=== PATIENT | female | born 1960 | race Caucasian/White ===

== ENCOUNTER 2017-03-30 08:00 | Outpatient (CLI) | payer OTHER ==
[2017-03-30 13:27] LABS: BASOPHILS % (AUTO) 0.5 %; EOSINOPHILS # (AUTO) 0.2 10^3/uL (0.0-0.7); EOSINOPHILS % (AUTO) 2.5 %; HCT - HEMATOCRIT 40.2 % (37.0-47.0); HGB - HEMOGLOBIN 13.2 g/dL (12.0-16.0); LYMPHOCYTES # (AUTO) 1.9 10^3/uL (1.5-3.5); MEAN CORPUSCULAR HEMOGLOBIN 28.5 pg (27.0-31.0); MEAN CORPUSCULAR HGB CONC 32.7 g/dL (32.0-36.0); MEAN CORPUSCULAR VOLUME 87.1 fL (81.0-99.0); MEAN PLATELET VOLUME 8.1 fL (7.9-10.8); MONOCYTES # (AUTO) 0.6 10^3/uL (0.0-1.0); MONOCYTES % (AUTO) 7.2 %; NEUTROPHILS # (AUTO) 5.3 10^3/uL (1.5-6.6); NEUTROPHILS % (AUTO) 65.8 %; NUCLEATED RED BLOOD CELLS AUTO 0.1 /100WBC; RED BLOOD COUNT 4.61 10^6/uL (4.20-5.40); RED CELL DISTRIBUTION WIDTH 13.6 % (12.0-15.0)
[2017-03-30 13:52] LABS: ALBUMIN/GLOBULIN RATIO 1.3 (1.0-2.2); BILIRUBIN,TOTAL 0.5 mg/dL (0.2-1.0); BUN - BLOOD UREA NITROGEN 37 mg/dL (6-20); CALCIUM 9.7 mg/dL (8.5-10.3); CARBON DIOXIDE - CO2 28 mmol/L (21-32); CHLORIDE 103 mmol/L (101-111); CHOL/HDL RATIO 3.2 (<4.4); CHOLESTEROL 165 mg/dL; CREATININE 1.3 mg/dL (0.4-1.0); GFR - MDRD 43 (>89); GLUCOSE 118 mg/dL (70-100); HDL CHOLESTEROL 52 mg/dL; LDL/HDL RATIO 1.8 (<4.4); POTASSIUM 4.4 mmol/L (3.5-5.0); SODIUM 139 mmol/L (135-145); TOTAL PROTEIN 7.6 g/dL (6.7-8.2); TRIGLYCERIDES 93 mg/dL; VLDL CHOLESTEROL 19 mg/dL
[2017-03-30 14:14] LABS: FOLATE 8.59 ng/mL (5.90 - >24.8)
[2017-03-30 14:21] LABS: THYROID STIMULATING HORMONE 2.15 uIU/mL (0.34-5.60)
== END 2017-03-30 08:01 | disposition home or self-care (01) ==
LOC: LAB.N 08:00
PROVIDERS: ATTEND Family Medicine
DX: I10 Essential (primary) hypertension (principal); E78.5 Hyperlipidemia, unspecified; R42 Dizziness and giddiness; N28.9 Disorder of kidney and ureter, unspecified; D52.9 Folate deficiency anemia, unspecified; Z79.899 Other long term (current) drug therapy
CPT/HCPCS: 36415; 80053; 80061; 82746; 84439; 84443; 85025

== ENCOUNTER 2017-07-08 14:57 | Outpatient (CLI) | payer OTHER ==
[2017-07-08 14:36] LABS: ALBUMIN/GLOBULIN RATIO 1.3 (1.0-2.2); BILIRUBIN,TOTAL 0.6 mg/dL (0.2-1.0); BUN - BLOOD UREA NITROGEN 29 mg/dL (6-20); CALCIUM 9.5 mg/dL (8.5-10.3); CARBON DIOXIDE - CO2 25 mmol/L (21-32); CHLORIDE 104 mmol/L (101-111); CHOL/HDL RATIO 4.7 (<4.4); CHOLESTEROL 248 mg/dL; CREATININE 1.1 mg/dL (0.4-1.0); GFR - MDRD 52 (>89); GLUCOSE 98 mg/dL (70-100); HDL CHOLESTEROL 53 mg/dL; LDL/HDL RATIO 3.3 (<4.4); POTASSIUM 4.1 mmol/L (3.5-5.0); SODIUM 139 mmol/L (135-145); TOTAL PROTEIN 7.8 g/dL (6.7-8.2); TRIGLYCERIDES 108 mg/dL; VLDL CHOLESTEROL 22 mg/dL
[2017-07-08 15:33] LABS: HEMOGLOBIN A1C 0.67 g/dL
== END 2017-07-08 14:58 | disposition home or self-care (01) ==
LOC: LAB.N 14:57
PROVIDERS: ATTEND Family Medicine
DX: R73.9 Hyperglycemia, unspecified (principal); N28.9 Disorder of kidney and ureter, unspecified; I10 Essential (primary) hypertension; E78.5 Hyperlipidemia, unspecified; Z79.899 Other long term (current) drug therapy
CPT/HCPCS: 36415; 80053; 80061; 83036

== ENCOUNTER 2017-08-16 15:39 | Emergency (ER) | payer OTHER ==
[2017-08-16 15:45] VITALS: BP 143/85
[2017-08-16] MEDS ORDERED: HYDROcod/ACETAM 5/325 MG TABLET PO STA (16:13)
--- NOTE | 2017-08-16 16:16 | ED Physician Documentation ---
PD HPI HEENT - Stated complaint Stated Complaint: SINUS PRESURE - Chief complaint Chief Complaint: Heent - History obtained from History obtained from: Patient - History of Present Illness Timing - onset: How many days ago (2) Timing - details: Still present Location: Sinuses Associated symptoms: No: Fever, Cough Similar symptoms before: Diagnosis (She reports history of similar symptoms about one year ago with sinus infection.) - Additional information Additional information: The patient is a 56-year-old female who presents with sinus pressure and right frontal headache that have been ongoing for the past 2 or 3 days. She denies fever, cough, nausea or vomiting. She reports history of similar symptoms with sinus infection about one year ago. Social history is significant for cigarette smoking. Review of Systems Constitutional: denies: Fever Eyes: denies: Discharge Ears: denies: Ear pain Nose: reports: Congestion, Sinus pressure / pain Throat: denies: Sore throat Cardiac: denies: Chest pain / pressure Respiratory: denies: Dyspnea, Cough GI: denies: Abdominal Pain, Nausea, Vomiting : denies: Dysuria Skin: denies: Rash Musculoskeletal: denies: Neck pain Neurologic: reports: Headache. denies: Focal weakness, Numbness PD PAST MEDICAL HISTORY - Past Medical History Past Medical History: Yes Cardiovascular: Hypertension Psych: Anxiety - Past Surgical History Past Surgical History: Yes Ortho: Other - Present Medications Home Medications: Ambulatory Orders Medication Instructions Recorded Confirmed Lisinopril 20 mg PO DAILY 06/10/15 08/16/17 Cyclobenzaprine [Flexeril] 10 mg PO TID PRN 08/14/15 08/16/17 Azithromycin [Zithromax] 250 mg PO DAILY #6 tablet 08/16/17 Oxymetazoline HCl [Afrin] 15 ml NS BID #1 mist 08/16/17 - Allergies Allergies/Adverse Reactions: Allergies Allergy/AdvReac Type Severity Reaction Status Date / Time No Known Drug Allergies Allergy Verified 06/10/15 12:27 - Social History Does the pt smoke?: Yes Smoking Status: Current every day smoker Does the pt drink ETOH?: No Does the pt have substance abuse?: No - Immunizations Immunizations are current?: Yes PD ED PE NORMAL - Vitals Vital signs reviewed: Yes (initially hypertensive.) - General General: Alert and oriented X 3, Well developed/nourished - HEENT HEENT: Atraumatic, PERRL, EOMI, Ears normal, Other (There is tenderness to percussion over the right maxillary and frontal sinuses.) - Neck Neck: Supple, no meningeal sign, No adenopathy, No JVD - Cardiac Cardiac: RRR, No murmur - Respiratory Respiratory: No respiratory distress, Clear bilaterally - Abdomen Abdomen: Soft, Non tender - Back Back: No CVA TTP - Derm Derm: No rash - Extremities Extremities: No edema, No calf tenderness / cord - Neuro Neuro: Alert and oriented X 3, No motor deficit, No sensory deficit Results - Vitals Vitals: Oxygen O2 Source Room air PD MEDICAL DECISION MAKING - ED course Complexity details: considered differential, d/w patient, d/w family ED course: The patient's presentation is consistent with sinusitis versus viral upper respiratory infection. Her presentation does not suggest meningitis, pharyngitis, or peritonsillar abscess. I discussed with her that antibiotics are not necessarily indicated for sinusitis, especially with symptoms of only 2 or 3 days duration. However she was quite insistent that the only way it has been improving the past as with antibiotic therapy. Subsequently I discharged her with prescription for Zithromax as well as Afrin nasal spray. I discussed with her the expected course of illness, outpatient follow-up, as well as potentially worrisome signs or symptoms that should prompt reevaluation in the emergency department. Departure - Departure Disposition: 01 Home, Self Care Clinical Impression: Sinusitis Qualifiers: Sinusitis location: maxillary Chronicity: acute Recurrence: recurrent Qualified Code(s): J01.01 - Acute recurrent maxillary sinusitis Condition: Stable Instructions: ED Sinusitis Abx Tx Follow-Up: Elizabet Toribio MD [Primary Care Provider] - Prescriptions: Azithromycin [Zithromax] 250 mg PO DAILY #6 tablet Oxymetazoline HCl [Afrin] 15 ml NS BID #1 mist Comments: Stop smoking cigarettes. Use Afrin nasal spray twice daily as prescribed. Take Zithromax once daily as prescribed. You can use ibuprofen, up to 800 mg 3 times daily for fever or discomfort. Follow up with your primary physician within 2 weeks. Call to schedule an appointment. Return to the emergency department if you develop increasing headache, increasing difficulty breathing, or otherwise worsening symptoms. Discharge Date/Time: 08/16/17 16:27
[2017-08-16] MEDS ORDERED: HYDROcod/ACETAM 5/325 MG TABLET ONE (16:27)
== END 2017-08-16 16:27 | disposition home or self-care (01) ==
LOC: ED 15:39
DX: J01.01 Acute recurrent maxillary sinusitis (principal); F17.210 Nicotine dependence, cigarettes, uncomplicated
CPT/HCPCS: 99283

== ENCOUNTER 2017-11-28 08:00 | Outpatient (CLI) | payer OTHER ==
[2017-11-28 19:30] LABS: HB2 TOTAL 14.8 g/dL; HEMOGLOBIN A1C 0.65 g/dL; HEMOGLOBIN A1C % 6.2 % (4.6-6.2)
[2017-11-28 19:48] LABS: ALBUMIN 4.4 g/dL (3.2-5.5); ALBUMIN/GLOBULIN RATIO 1.4 (1.0-2.2); ALKALINE PHOSPHATASE 77 IU/L (42-121); ALT ALANINE AMINOTRANSFERASE 29 IU/L (10-60); AST ASPARTATE AMINOTRANSFERASE 21 IU/L (10-42); BILIRUBIN,TOTAL 0.5 mg/dL (0.2-1.0); BUN - BLOOD UREA NITROGEN 23 mg/dL (6-20); CALCIUM 9.4 mg/dL (8.5-10.3); CARBON DIOXIDE - CO2 26 mmol/L (21-32); CHLORIDE 104 mmol/L (101-111); CHOL/HDL RATIO 3.3 (<4.4); CHOLESTEROL 159 mg/dL; CREATININE 1.1 mg/dL (0.4-1.0); GFR - MDRD 52 (>89); GLUCOSE 88 mg/dL (70-100); HDL CHOLESTEROL 48 mg/dL; LDL CHOLESTEROL,CALCULATED 91 mg/dL; LDL/HDL RATIO 1.9 (<4.4); SODIUM 137 mmol/L (135-145); TOTAL PROTEIN 7.5 g/dL (6.7-8.2); VLDL CHOLESTEROL 20 mg/dL
== END 2017-11-28 08:01 | disposition home or self-care (01) ==
LOC: LAB.N 08:00
PROVIDERS: ATTEND Family Medicine
DX: I10 Essential (primary) hypertension (principal); D52.9 Folate deficiency anemia, unspecified; R73.9 Hyperglycemia, unspecified
CPT/HCPCS: 36415; 80053; 80061; 82746; 83036; 83721

== ENCOUNTER 2019-04-16 09:27 | Emergency (ER) | payer OTHER ==
[2019-04-16] MEDS ORDERED: CHERRY SYRUP 10 ML UDC PO ONE (10:43)
[2019-04-16] MEDS ORDERED: DEXAMETHASONE 10 MG/ML VIAL PO STA (10:43)
[2019-04-16] MEDS ORDERED: KETOROLAC 60 MG/2 ML VIAL IM STA (10:43)
--- NOTE | 2019-04-16 10:46 | ED Physician Documentation ---
History of Present Illness - Stated complaint Stated Complaint: LT SHOULDER PX - Chief complaint Chief Complaint: Back Pain - History obtained from History obtained from: Patient, Family - History of Present Illness Timing: Yesterday - Additonal information Additional information: Previously well 58-year-old female with a prior history of calcific tendinitis has developed acute pain in her left shoulder and a reduced range of motion associated with it. She even has some numbness down to her fingertips. She has had this happen to her previously. She knows that she did clean her house this week this is likely the inciting event. Review of Systems Constitutional: denies: Fever Eyes: denies: Decreased vision Ears: denies: Ear pain Nose: denies: Congestion Throat: denies: Sore throat Cardiac: denies: Chest pain / pressure, Palpitations Respiratory: denies: Dyspnea, Cough : denies: Dysuria Skin: denies: Rash Musculoskeletal: reports: Neck pain, Extremity pain Neurologic: reports: Numbness. denies: Generalized weakness, Focal weakness PD PAST MEDICAL HISTORY - Past Medical History Cardiovascular: Hypertension Psych: Anxiety - Past Surgical History Past Surgical History: Yes Ortho: Other - Present Medications Home Medications: Ambulatory Orders Medication Instructions Recorded Confirmed RX: Lisinopril 20 mg PO DAILY 06/10/15 08/16/17 Cyclobenzaprine [Flexeril] 10 mg PO TID PRN 08/14/15 08/16/17 Clopidogrel [Plavix] 75 mg PO DAILY 04/16/19 04/16/19 Hydrocodone/Acetaminophen 1 - 2 each PO Q6H PRN #14 tablet 04/16/19 [Hydrocodon-Acetaminophen 5-325] - Allergies Allergies/Adverse Reactions: Allergies Allergy/AdvReac Type Severity Reaction Status Date / Time No Known Drug Allergies Allergy Verified 04/16/19 09:36 - Social History Does the pt smoke?: Yes Smoking Status: Current every day smoker Does the pt drink ETOH?: No Does the pt have substance abuse?: No - Immunizations Immunizations are current?: Yes PD ED PE NORMAL - Vitals Vital signs reviewed: Yes (hypertensive mild ) - General General: Alert and oriented X 3, No acute distress, Well developed/nourished - HEENT HEENT: Atraumatic, PERRL, EOMI - Neck Neck: Supple, no meningeal sign, No bony TTP - Respiratory Respiratory: No respiratory distress - Derm Derm: Normal color, Warm and dry, No rash - Extremities Extremities: No deformity, No edema, Other (There is pain to the left deltoid to palpation and there is restricted ROM secondary to pain. There is also pain in the left neck paraspinous muscles extending to the insertion of the spinal accessor. 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 Rotator cuff calcific tendinopathy. 2. No acute fracture or subluxation and no evidence for shoulder joint effusion.), EMP read indepedently, See rad report PD MEDICAL DECISION MAKING - ED course Complexity details: considered differential, d/w patient, d/w family ED course: 58-year-old female with acute left shoulder pain after cleaning her house has calcific tendinitis and she is administered dexamethasone and Toradol with some relief of her pain we will provide some narcotic pain reliever for short-term. Departure - Departure Disposition: 01 Home, Self Care Clinical Impression: Calcific tendinitis of left shoulder Instructions: ED Tendinitis Calcific Follow-Up: Elizabet Toribio MD [Primary Care Provider] - Prescriptions: Hydrocodone/Acetaminophen [Hydrocodon-Acetaminophen 5-325] 1 - 2 each PO Q6H PRN #14 tablet PRN Reason: pain
--- NOTE | 2019-04-16 11:53 | XRAY Report ---
Reason: acute pain with reduced ROM Procedure Date: 04/16/2019 Accession Number: [id number] / [id number] Procedure: XR - Shoulder 3 View LT CPT Code: FULL RESULT: EXAM: LEFT SHOULDER RADIOGRAPHY EXAM DATE: 04/16/2019 11:00 AM. CLINICAL HISTORY: Acute left shoulder pain with decreased range of motion. COMPARISON: SHOULDER 3 VIEW LT 02/23/2016 9:36 AM. TECHNIQUE: 3 views. FINDINGS: Bones: Normal. No fracture or bone lesion. Joints: The glenohumeral and acromioclavicular joints are normal. No evidence for shoulder joint effusion. Soft tissues: Calcifications in the tendons of the rotator cuff. IMPRESSION: 1. Rotator cuff calcific tendinopathy. 2. No acute fracture or subluxation and no evidence for shoulder joint effusion. RADIA
[2019-04-16 12:09] VITALS: BP 138/66
== END 2019-04-16 12:09 | disposition home or self-care (01) ==
LOC: ED 09:27
DX: M75.32 Calcific tendinitis of left shoulder (principal); I10 Essential (primary) hypertension; F17.200 Nicotine dependence, unspecified, uncomplicated
CPT/HCPCS: 96372; 99283

== ENCOUNTER 2019-07-10 08:57 | Outpatient (CLI) | payer OTHER ==
[2019-07-10 12:18] LABS: BASOPHILS % (AUTO) 0.4 %; EOSINOPHILS # (AUTO) 0.2 10^3/uL (0.0-0.7); EOSINOPHILS % (AUTO) 2.4 %; HGB - HEMOGLOBIN 13.9 g/dL (12.0-16.0); LYMPHOCYTES # (AUTO) 2.1 10^3/uL (1.5-3.5); LYMPHOCYTES % (AUTO) 30.6 %; MEAN CORPUSCULAR HEMOGLOBIN 28.3 pg (27.0-31.0); MEAN CORPUSCULAR HGB CONC 31.2 g/dL (32.0-36.0); MEAN CORPUSCULAR VOLUME 90.8 fL (81.0-99.0); MEAN PLATELET VOLUME 10.1 fL (7.9-10.8); MONOCYTES # (AUTO) 0.4 10^3/uL (0.0-1.0); MONOCYTES % (AUTO) 6.4 %; NEUTROPHILS # (AUTO) 4.1 10^3/uL (1.5-6.6); NEUTROPHILS % (AUTO) 60.1 %; PLT - PLATELET COUNT 336 10^3/uL (130-450); RED BLOOD COUNT 4.91 10^6/uL (4.20-5.40); RED CELL DISTRIBUTION WIDTH 13.5 % (12.0-15.0); WHITE BLOOD COUNT 6.8 x10^3/uL (4.8-10.8)
[2019-07-10 12:44] LABS: ALBUMIN 4.3 g/dL (3.2-5.5); ALBUMIN/GLOBULIN RATIO 1.2 (1.0-2.2); ALKALINE PHOSPHATASE 88 IU/L (42-121); ALT ALANINE AMINOTRANSFERASE 50 IU/L (10-60); AST ASPARTATE AMINOTRANSFERASE 33 IU/L (10-42); BILIRUBIN,TOTAL 0.4 mg/dL (0.2-1.0); BUN - BLOOD UREA NITROGEN 27 mg/dL (6-20); CALCIUM 9.6 mg/dL (8.5-10.3); CARBON DIOXIDE - CO2 25 mmol/L (21-32); CHLORIDE 108 mmol/L (101-111); CHOL/HDL RATIO 3.7 (<4.4); CHOLESTEROL 194 mg/dL; CREATININE 1.1 mg/dL (0.4-1.0); GFR - MDRD 51 (>89); GLUCOSE 116 mg/dL (70-100); HDL CHOLESTEROL 52 mg/dL; LDL CHOLESTEROL,CALCULATED 120 mg/dL; LDL/HDL RATIO 2.3 (<4.4); SODIUM 143 mmol/L (135-145); TOTAL PROTEIN 7.8 g/dL (6.7-8.2); VLDL CHOLESTEROL 22 mg/dL
[2019-07-10 13:00] LABS: HB2 TOTAL 14.4 g/dL; HEMOGLOBIN A1C 0.65 g/dL; HEMOGLOBIN A1C % 6.3 % (4.6-6.2)
== END 2019-07-10 23:59 | disposition home or self-care (01) ==
LOC: LAB.N 08:57
PROVIDERS: ATTEND Family Medicine
DX: R73.9 Hyperglycemia, unspecified (principal); D52.9 Folate deficiency anemia, unspecified; N28.9 Disorder of kidney and ureter, unspecified; Z79.899 Other long term (current) drug therapy; I10 Essential (primary) hypertension; E78.5 Hyperlipidemia, unspecified
CPT/HCPCS: 36415; 80053; 80061; 83036; 83721; 84443; 85025

== ENCOUNTER 2021-08-20 09:31 | Outpatient (CLI) | payer OTHER ==
[2021-08-20 12:14] LABS: ESTIMATED AVERAGE GLUCOSE 140 mg/dL (70-100); HEMOGLOBIN A1c% 6.5 % (4.27-6.07)
[2021-08-20 13:36] LABS: ALBUMIN 4.2 g/dL (3.2-5.5); ALBUMIN/GLOBULIN RATIO 1.5 (1.0-2.2); ALKALINE PHOSPHATASE 80 IU/L (42-121); ALT ALANINE AMINOTRANSFERASE 30 IU/L (10-60); AST ASPARTATE AMINOTRANSFERASE 22 IU/L (10-42); BILIRUBIN,TOTAL 0.7 mg/dL (0.2-1.0); BUN - BLOOD UREA NITROGEN 26 mg/dL (6-20); CALCIUM 9.4 mg/dL (8.5-10.3); CARBON DIOXIDE - CO2 26 mmol/L (21-32); CHLORIDE 108 mmol/L (101-111); CHOL/HDL RATIO 3.6 (<4.4); CHOLESTEROL 189 mg/dL; GFR - MDRD 57 (>89); GLUCOSE 101 mg/dL (70-100); HDL CHOLESTEROL 52 mg/dL; LDL CHOLESTEROL,CALCULATED 114 mg/dL; LDL/HDL RATIO 2.2 (<4.4); POTASSIUM 4.6 mmol/L (3.5-5.0); SODIUM 144 mmol/L (135-145); TRIGLYCERIDES 115 mg/dL; VLDL CHOLESTEROL 23 mg/dL
== END 2021-08-20 09:32 | disposition home or self-care (01) ==
LOC: LAB.N 09:31
PROVIDERS: ATTEND Family Medicine
DX: E78.5 Hyperlipidemia, unspecified (principal)
CPT/HCPCS: 36415; 80053; 80061; 83036; 83721

== ENCOUNTER 2022-07-13 13:06 | Outpatient (CLI) | payer OTHER ==
[2022-07-13 17:54] LABS: BASOPHILS % (AUTO) 0.4 %; EOSINOPHILS # (AUTO) 0.3 10^3/uL (0.0-0.7); EOSINOPHILS % (AUTO) 3.5 %; HCT - HEMATOCRIT 43.5 % (37.0-47.0); HGB - HEMOGLOBIN 13.8 g/dL (12.0-16.0); LYMPHOCYTES # (AUTO) 2.5 10^3/uL (1.5-3.5); MEAN CORPUSCULAR HEMOGLOBIN 28.7 pg (27.0-31.0); MEAN CORPUSCULAR HGB CONC 31.7 g/dL (32.0-36.0); MEAN CORPUSCULAR VOLUME 90.4 fL (81.0-99.0); MEAN PLATELET VOLUME 10.5 fL (7.9-10.8); MONOCYTES # (AUTO) 0.5 10^3/uL (0.0-1.0); MONOCYTES % (AUTO) 6.7 %; NEUTROPHILS # (AUTO) 4.2 10^3/uL (1.5-6.6); NEUTROPHILS % (AUTO) 56.1 %; PLT - PLATELET COUNT 370 10^3/uL (130-450); RED BLOOD COUNT 4.81 10^6/uL (4.20-5.40); RED CELL DISTRIBUTION WIDTH 13.3 % (12.0-15.0); WHITE BLOOD COUNT 7.5 x10^3/uL (4.8-10.8)
[2022-07-13 18:09] LABS: ALBUMIN 4.5 g/dL (3.2-5.5); ALBUMIN/GLOBULIN RATIO 1.4 (1.0-2.2); ALKALINE PHOSPHATASE 95 IU/L (42-121); ALT ALANINE AMINOTRANSFERASE 47 IU/L (10-60); AST ASPARTATE AMINOTRANSFERASE 34 IU/L (10-42); BILIRUBIN,TOTAL 0.4 mg/dL (0.2-1.0); BUN - BLOOD UREA NITROGEN 29 mg/dL (6-20); CALCIUM 9.7 mg/dL (8.5-10.3); CARBON DIOXIDE - CO2 30 mmol/L (21-32); CHLORIDE 101 mmol/L (101-111); CHOL/HDL RATIO 3.4 (<4.4); CHOLESTEROL 182 mg/dL; CREATININE 1.1 mg/dL (0.4-1.0); GFR - MDRD 51 (>89); GLUCOSE 105 mg/dL (70-100); HDL CHOLESTEROL 53 mg/dL; LDL CHOLESTEROL,CALCULATED 110 mg/dL; LDL/HDL RATIO 2.1 (<4.4); POTASSIUM 4.2 mmol/L (3.5-5.0); SODIUM 140 mmol/L (135-145); TOTAL PROTEIN 7.8 g/dL (6.7-8.2); TRIGLYCERIDES 96 mg/dL; VLDL CHOLESTEROL 19 mg/dL
[2022-07-13 18:19] LABS: THYROID STIMULATING HORMONE 3.25 uIU/mL (0.34-5.60)
[2022-07-13 20:08] LABS: ESTIMATED AVERAGE GLUCOSE 126 mg/dL (70-100)
[2022-07-14 06:10] LABS: HCV AB <0.1 s/co ratio (0.0-0.9)
== END 2022-07-13 13:07 | disposition home or self-care (01) ==
LOC: LAB.N 13:06
PROVIDERS: ATTEND Family Medicine
DX: Z00.00 Encounter for general adult medical examination without abnormal findings (principal); I10 Essential (primary) hypertension; R73.9 Hyperglycemia, unspecified; D52.9 Folate deficiency anemia, unspecified; E78.5 Hyperlipidemia, unspecified; Z13.29 Encounter for screening for other suspected endocrine disorder
CPT/HCPCS: 36415; 80053; 80061; 83036; 83721; 84443; 85025; 86803

== ENCOUNTER 2022-12-23 10:59 | Outpatient (CLI) | payer OTHER ==
[2022-12-23 17:56] LABS: HCT - HEMATOCRIT 41.3 % (37.0-47.0); HGB - HEMOGLOBIN 12.7 g/dL (12.0-16.0); MEAN CORPUSCULAR HEMOGLOBIN 28.4 pg (27.0-31.0); MEAN CORPUSCULAR HGB CONC 30.8 g/dL (32.0-36.0); MEAN CORPUSCULAR VOLUME 92.4 fL (81.0-99.0); MEAN PLATELET VOLUME 10.2 fL (7.9-10.8); RED BLOOD COUNT 4.47 10^6/uL (4.20-5.40); RED CELL DISTRIBUTION WIDTH 13.7 % (12.0-15.0); WHITE BLOOD COUNT 5.5 x10^3/uL (4.8-10.8)
[2022-12-23 18:17] LABS: ALBUMIN 3.9 g/dL (3.2-5.5); ALBUMIN/GLOBULIN RATIO 1.2 (1.0-2.2); ALKALINE PHOSPHATASE 85 IU/L (42-121); ALT ALANINE AMINOTRANSFERASE 50 IU/L (10-60); AST ASPARTATE AMINOTRANSFERASE 37 IU/L (10-42); BILIRUBIN,TOTAL 0.5 mg/dL (0.2-1.0); BUN - BLOOD UREA NITROGEN 22 mg/dL (6-20); CALCIUM 9.3 mg/dL (8.5-10.3); CARBON DIOXIDE - CO2 27 mmol/L (21-32); CHLORIDE 107 mmol/L (101-111); CHOL/HDL RATIO 4.4 (<4.4); CHOLESTEROL 240 mg/dL; CREATININE 1.1 mg/dL (0.4-1.0); GFR - MDRD 51 (>89); GLUCOSE 104 mg/dL (70-100); HDL CHOLESTEROL 54 mg/dL; LDL CHOLESTEROL,CALCULATED 160 mg/dL; POTASSIUM 4.6 mmol/L (3.5-5.0); SODIUM 141 mmol/L (135-145); TOTAL PROTEIN 7.1 g/dL (6.7-8.2); TRIGLYCERIDES 129 mg/dL; VLDL CHOLESTEROL 26 mg/dL
[2022-12-23 20:45] LABS: ESTIMATED AVERAGE GLUCOSE 137 mg/dL (70-100); HEMOGLOBIN A1c% 6.4 % (4.27-6.07)
[2022-12-27 07:08] LABS: HCV AB Non Reactive (Non Reactive)
== END 2022-12-23 11:00 | disposition home or self-care (01) ==
LOC: LAB.N 10:59
PROVIDERS: ATTEND Family Medicine
DX: I10 Essential (primary) hypertension (principal); R73.9 Hyperglycemia, unspecified; D52.9 Folate deficiency anemia, unspecified; E78.5 Hyperlipidemia, unspecified; Z11.59 Encounter for screening for other viral diseases
CPT/HCPCS: 36415; 80053; 80061; 83036; 83721; 85025; 85027; 86803

== ENCOUNTER 2023-03-08 10:41 | Emergency (ER) | payer OTHER ==
--- NOTE | 2023-03-08 10:56 | ED Physician Documentation ---
PD HPI OPHTHO - Stated complaint Stated Complaint: LT EYE PX - Chief complaint Chief Complaint: Heent - History obtained from History obtained from: Patient - History of Present Illness Timing - onset: How many days ago (2), Other (she has also had 1 1/2 weeks of right low back pain, worse with ROM. No forceful injury but has been doing home repair activities.) Timing - duration: Days (2) Timing - details: Abrupt onset (she was spraying wall texturizer onto wall, wearing goggles and Rx glasses. She states some floated into her eye and felt irritated. No forceful/direct impact. Has now started with crusting/matting of left eye this morning.), Still present Location: Left Quality / character: Burning, Aching Associated symptoms: Discharge, Matting, FB sensation. No: Redness, Photophobia Contributing factors: FB (wall texturing material.) Similar symptoms before: Has not had sx before Recently seen: Not recently seen Review of Systems Constitutional: denies: Fever, Chills Nose: denies: Rhinorrhea / runny nose, Congestion Throat: denies: Sore throat Respiratory: denies: Cough Skin: denies: Rash, Lesions PD PAST MEDICAL HISTORY - Past Medical History Cardiovascular: Hypertension Psych: Anxiety - Past Surgical History Past Surgical History: Yes Ortho: Other - Present Medications Home Medications: Ambulatory Orders Medication Instructions Recorded Confirmed Lisinopril 20 mg PO DAILY 06/10/15 08/16/17 Cyclobenzaprine [Flexeril] 10 mg PO TID PRN 08/14/15 08/16/17 Clopidogrel [Plavix] 75 mg PO DAILY 04/16/19 04/16/19 Hydrocodone/Acetaminophen 1 - 2 each PO Q6H PRN #14 tablet 04/16/19 [Hydrocodon-Acetaminophen 5-325] HYDROcod/ACETAM 5/325 [[place] 5/325] 1 ea PO Q6H PRN #15 tablet 03/08/23 Ketorolac Tromethamine 2 drops LEFTEYE TID 5 Days #10 ml 03/08/23 Meloxicam [Mobic] 7.5 mg PO BID 10 Days #20 tablet 03/08/23 Polymyxin B/Trimeth Ophth Drop 1 drops LEFTEYE QID 5 Days #1 each 03/08/23 [Polytrim Ophth Drops] methocarbamoL [Robaxin] 500 mg PO TID PRN #30 tablet 03/08/23 - Allergies Allergies/Adverse Reactions: Allergies Allergy/AdvReac Type Severity Reaction Status Date / Time No Known Drug Allergies Allergy Verified 04/16/19 09:36 - Social History Does the pt smoke?: Yes Smoking Status: Current every day smoker Does the pt drink ETOH?: No Does the pt have substance abuse?: No - Immunizations Immunizations are current?: Yes PD ED PE NORMAL - Vitals Vital signs reviewed: Yes - General General: Alert and oriented X 3, Well developed/nourished, Other (seems uncomfortable with eye opening. Also guarded ROM of the right low back. ) - HEENT HEENT: PERRL, EOMI - Back Back: No CVA TTP, No spinal TTP (she is tender more lateral at the iliac crest/SI area without rash nor deformity. ) - Derm Derm: Normal color, Warm and dry - Neuro Neuro: Alert and oriented X 3, No motor deficit, No sensory deficit, Normal speech PD ED PE EXPANDED - Eyes Eyes: Exudate (mild at lid margins.), Anterior chambers clear, Normal fundi. No: Corneal FB, Corneal abrasion, Corneal ulcer, Fluorescein uptake Results - Vitals Vitals: Vital Signs - 24 hr 03/08/23 10:48 Temperature 36.3 C L Heart Rate 80 Respiratory 20 Rate Blood Pressure 149/90 H O2 Saturation 100 Oxygen O2 Source Room air PD Medical Decision Making - ED course Complexity details: considered differential (had gotten spackle in eye, not forcefully. Has persistent irritation feeling. No FB/residual material seen. Has some crusting/discharge to consider also infection. ), d/w patient ED course: She has 2 complaints, 1 of left eye irritation after getting speckle in it a couple of days ago. Increased redness and matting. No contact wearing. Other complaint is right low back pain with radiation down the right leg. No numbness or weakness. No incontinence. No rash or sores or fevers or other red flags. No forceful injury. We discussed empiric treatment at this low back pain and spasms and guidelines suggesting no testing or imaging initially. She verified she does not take Plavix anymore. That was back in 2017 for short- term. We can treat with anti-inflammatories and muscle relaxants and pain medicine. She can seek out physical therapy or massage or chiropractic. For the eye we can use some anti-inflammatory and antibiotic eyedrops. Departure - Departure Disposition: 01 Home, Self Care Clinical Impression: Conjunctivitis Qualifiers: Conjunctivitis type: acute Acute conjunctivitis type: unspecified Laterality: left Qualified Code(s): H10.32 - Unspecified acute conjunctivitis, left eye Low back pain Qualifiers: Chronicity: acute Back pain laterality: right Sciatica presence: with sciatica Sciatica laterality: sciatica of right side Qualified Code(s): M54.41 - Lumbago with sciatica, right side Condition: Stable Record reviewed to determine appropriate education?: Yes Instructions: ED Chemical Conjunctivitis, ED Sciatica Follow-Up: Elizabet Toribio MD [Primary Care Provider] - Prescriptions: Ketorolac Tromethamine 2 drops LEFTEYE TID 5 Days #10 ml Meloxicam [Mobic] 7.5 mg PO BID 10 Days #20 tablet HYDROcod/ACETAM 5/325 [[place] 5/325] 1 ea PO Q6H PRN #15 tablet PRN Reason: Pain Polymyxin B/Trimeth Ophth Drop [Polytrim Ophth Drops] 1 drops LEFTEYE QID 5 Days #1 each methocarbamoL [Robaxin] 500 mg PO TID PRN #30 tablet PRN Reason: Spasms Comments: Regarding your eye, I do not see any residual material in there and there is no signs of ulcerations abrasions or erosions. There is redness and inflammation consistent with a persistent conjunctivitis. This is obviously initially contact/chemical irritation from the speckled but concern would be developing some infection now 2. I would treat it with both an anti-inflammatory and an antibiotic eyedrops 3-4 times daily for the next 3 to 5 days until better. Regarding your low back, low back pain with some nerve irritation is relatively common and typically treated with medications and physical modalities such as massage, stretching, chiropractic or physical therapy. Is not unusual for her to take several weeks to improve. I wrote prescriptions for the above medications for you. Heat and gentle stretching. Follow-up with your primary care if not improving over the next several days to week as they may want to initiate physical therapy or such as well. I sent your prescriptions to the [facility] pharmacy in [place]. I am prescribing a short course of narcotic pain medication for you. These are potentially dangerous and addictive medications that should be used carefully. These medications may constipate you. Take an [id number] stool softener such as docusate twice daily with plenty of water while taking these medications. If you go 24 hours without a bowel movement, take [id number] MiraLAX, per package instructions. Do not drink or drive while taking these medications. If you received narcotic or sedating medications while in the emergency department do not drive for 24 hours. Store this medication in a safe, secure place and out of reach of children. It is a violation of federal law to give or sell this medication to another person or to use in a manner other than prescribed. The ED will not refill narcotic prescriptions, including prescriptions lost or stolen. You can dispose of unwanted medications at the [facility]'s office or at several pharmacies such as [facility]. Discharge Date/Time: 03/08/23 11:56
[2023-03-08 10:57] VITALS: BP 149/90
--- OUTSIDE RECORDS SUMMARY | 2023-03-08 11:24 | EXTERNAL MEDICAL SUMMARY RPT | Continuity of Care Document ---
Author Name Unknown Address [address] [place] [address] Phone Organization [facility] Address [address] [place] [address] Phone Problems date description facility 2023-01-27 09:33 Other abnormal and i nconclusive findings on diagnostic [facility] 2023-01-27 10:28 Other abnormal and i nconclusive findings on diagnostic [facility] Results/Labs test date author facility value unit interpretation Result panel 1 (unknown) (no date) (unknown) (unknown) (no value) (units unknown) (unknown) (unknown) (no date) (unknown) (unknown) / 25%-50% (units unknown) (unknown) (unknown) (no date) (unknown) (unknown) [id number] (units unknown) (unknown) (unknown) (no date) (unknown) (unknown) 01/27/23 (units unknown) (unknown) (unknown) (no date) (unknown) (unknown) 10.7% and her 10 year risk is 4.3%. According to the ACR, ACS, and NCCN (units unknown) (unknown) (unknown) (no date) (unknown) (unknown) 08/30/2018 mammogram, and 08/05/2018 mammogram - [facility]. (units unknown) (unknown) (unknown) (no date) (unknown) (unknown) 09/21/2018 mammogram, 08/30/2018 ultrasound, 08/30/2018 mammogram, and 08/05/2018 (units unknown) (unknown) (unknown) (no date) (unknown) (unknown) [address] [place] [address] (un its unknown) (unknown) (unknown) (no date) (unknown) (unknown) 15% of breast malignancies will not be visualized mammographically. In the (units unknown) (unknown) (unknown) (no date) (unknown) (unknown) ACR BI-RADS Category 0: Incomplete 3340F (units unknown) (unknown) (unknown) (no date) (unknown) (unknown) Accession Numb er: [id number] (units unknown) (unknown) (unknown) (no date) (unknown) (unknown) Accession Numb er: [id number] (units unknown) (unknown) (unknown) (no date) (unknown) (unknown) Age/Sex: 62 / F Date of Service: (units unknown) (unknown) (unknown) (no date) (unknown) (unknown) [place] [address] (units unknown) (unknown) (unknown) (no date) (unknown) (unknown) Approximately (units unknown) (unknown) (unknown) (no date) (unknown) (unknown) BILATERAL DIGI LITA DIAGNOSTIC MAMMOGRAM 3D/2D: 01/27/2023 (units unknown) (unknown) (unknown) (no date) (unknown) (unknown) Based on the T iselaer Tiffaniezick model (a risk assessment model) the patient's lifetime (units unknown) (unknown) (unknown) (no date) (unknown) (unknown) CLINICAL: Late short term follow up of the right breast, due for bilateral (units unknown) (unknown) (unknown) (no date) (unknown) (unknown) CLINICAL: Late short term follow up of the right breast. (units unknown) (unknown) (unknown) (no date) (unknown) (unknown) Comparison is made to exams dated: 09/21/2018 mammogram, 08/30/2018 ultrasound, (units unknown) (unknown) (unknown) (no date) (unknown) (unknown) Comparison is made to exams dated: 01/27/2023 mammogram, 09/21/2018 ultrasound (units unknown) (unknown) (unknown) (no date) (unknown) (unknown) : 3 Acct:[id number] (units unknown) (unknown) (unknown) (no date) (unknown) (unknown) Electronically Signed By: Tomás Renteria M.D. (units unknown) (unknown) (unknown) (no date) (unknown) (unknown) Nickerson scale (units unknown) (unknown) (unknown) (no date) (unknown) (unknown) IMPRESSION: BENIGN ( units unknown) (unknown) (unknown) (no date) (unknown) (unknown) IMPRESSION: INCOMPLETE: NEEDS ADDITIONAL IMAGING EVALUATION (units unknown) (unknown) (unknown) (no date) (unknown) (unknown) [facility] (uni ts unknown) (unknown) (unknown) (no date) (unknown) (unknown) LIMITED ULTRAS OUND OF RIGHT BREAST: 01/27/2023 (units unknown) (unknown) (unknown) (no date) (unknown) (unknown) Loc: MAMMO (units unknown) (unknown) (unknown) (no date) (unknown) (unknown) Mammography Report ( units unknown) (unknown) (unknown) (no date) (unknown) (unknown) NOTE: For mammograms, a report in lay terms will be sent to the patient. (units unknown) (unknown) (unknown) (no date) (unknown) (unknown) No other significant masses or calcifications are seen in either breast. (units unknown) (unknown) (unknown) (no date) (unknown) (unknown) Ordering Provi daryn: Elizabet Toribio MD (units unknown) (unknown) (unknown) (no date) (unknown) (unknown) Patient: Cheyenne Gonzales MR#: [id number] (units unknown) (unknown) (unknown) (no date) (unknown) (unknown) Procedure: MM diagnostic mammo BI (units unknown) (unknown) (unknown) (no date) (unknown) (unknown) Procedure: US breast RT limited (units unknown) (unknown) (unknown) (no date) (unknown) (unknown) Real-time ultrasound of the right breast 10-11 o'clock region was performed. (units unknown) (unknown) (unknown) (no date) (unknown) (unknown) Return to [facility] mammogram screening schedule is recommended. (units unknown) (unknown) (unknown) (no date) (unknown) (unknown) Signed (units unknown) (unknown) (unknown) (no date) (unknown) (unknown) The benign mas s in the right breast at 10-11 o'clock middle depth 7 cm from the (units unknown) (unknown) (unknown) (no date) (unknown) (unknown) The focal asym metry in the left breast central to the nipple in the retroareolar (units unknown) (unknown) (unknown) (no date) (unknown) (unknown) The stable foc al asymmetry in the right breast at 10 o'clock anterior depth is (units unknown) (unknown) (unknown) (no date) (unknown) (unknown) There are scat tered areas of fibroglandular density in both breasts (category b (units unknown) (unknown) (unknown) (no date) (unknown) (unknown) There is a bio psy clip associated with the focal asymmetry. (units unknown) (unknown) (unknown) (no date) (unknown) (unknown) There is a foc al asymmetry in the left breast central to the nipple in the (units unknown) (unknown) (unknown) (no date) (unknown) (unknown) There is a sta ble focal asymmetry in the right breast at 10 o'clock anterior (units unknown) (unknown) (unknown) (no date) (unknown) (unknown) There is no sonographic evidence of malignancy. (units unknown) (unknown) (unknown) (no date) (unknown) (unknown) This exam was interpreted at Station ID: [id number]. (units unknown) (unknown) (unknown) (no date) (unknown) (unknown) Ultrasound BI- RADS: 2 Benign (units unknown) (unknown) (unknown) (no date) (unknown) (unknown) Ultrasound Report (u nits unknown) (unknown) (unknown) (no date) (unknown) (unknown) a palpable feng ast mass, a negative mammogram must not discourage biopsy of a (units unknown) (unknown) (unknown) (no date) (unknown) (unknown) annual breast MRI exam along with mammogram is recommended if the patient's (units unknown) (unknown) (unknown) (no date) (unknown) (unknown) biopsy, (units unknown) (unknown) (unknown) (no date) (unknown) (unknown) clinically (units unknown) (unknown) (unknown) (no date) (unknown) (unknown) depth. (units unknown) (unknown) (unknown) (no date) (unknown) (unknown) glandular tissue). ( units unknown) (unknown) (unknown) (no date) (unknown) (unknown) guidelines, an (unit s unknown) (unknown) (unknown) (no date) (unknown) (unknown) images of the real-time examination were reviewed. (units unknown) (unknown) (unknown) (no date) (unknown) (unknown) imaging. (units unknown) (unknown) (unknown) (no date) (unknown) (unknown) indeterminate. An ultrasound is recommended. (units unknown) (unknown) (unknown) (no date) (unknown) (unknown) is 20% or greater. ( units unknown) (unknown) (unknown) (no date) (unknown) (unknown) is indetermina te. An ultrasound is recommended. (units unknown) (unknown) (unknown) (no date) (unknown) (unknown) lc/:01/27/2023 10:39:07 (units unknown) (unknown) (unknown) (no date) (unknown) (unknown) lc/:01/27/2023 10:41:24 Entry: - 01/28/2023 11:25:05 (units unknown) (unknown) (unknown) (no date) (unknown) (unknown) lifetime risk (units unknown) (unknown) (unknown) (no date) (unknown) (unknown) mammogram - [facility]. (units unknown) (unknown) (unknown) (no date) (unknown) (unknown) management of (units unknown) (unknown) (unknown) (no date) (unknown) (unknown) nipple is (units unknown) (unknown) (unknown) (no date) (unknown) (unknown) no longer seen , previously biopsied. (units unknown) (unknown) (unknown) (no date) (unknown) (unknown) region (units unknown) (unknown) (unknown) (no date) (unknown) (unknown) region. This i s more prominent. (units unknown) (unknown) (unknown) (no date) (unknown) (unknown) retroareolar (units unknown) (unknown) (unknown) (no date) (unknown) (unknown) risk is (units unknown) (unknown) (unknown) (no date) (unknown) (unknown) suspicious lesion. ( units unknown) (unknown) Result panel 2 (unknown) (no date) (unknown) (unknown) (no value) (units unknown) (unknown) (unknown) (no date) (unknown) (unknown) [id number] (units unknown) (unknown) (unknown) (no date) (unknown) (unknown) 01/27/23 (units unknown) (unknown) (unknown) (no date) (unknown) (unknown) 09/21/2018 mammogram, 08/30/2018 ultrasound, 08/30/2018 mammogram, and 08/05/2018 (units unknown) (unknown) (unknown) (no date) (unknown) (unknown) [address] [place] [address] (un its unknown) (unknown) (unknown) (no date) (unknown) (unknown) Accession Numb er: [id number] (units unknown) (unknown) (unknown) (no date) (unknown) (unknown) Age/Sex: 62 / F Date of Service: (units unknown) (unknown) (unknown) (no date) (unknown) (unknown) [place] [address] (units unknown) (unknown) (unknown) (no date) (unknown) (unknown) CLINICAL: Shor t term follow up of asymmetry. (units unknown) (unknown) (unknown) (no date) (unknown) (unknown) Comparison is made to exams dated: 01/27/2023 mammogram, 09/21/2018 ultrasound (units unknown) (unknown) (unknown) (no date) (unknown) (unknown) : 3 Acct:[id number] (units unknown) (unknown) (unknown) (no date) (unknown) (unknown) Electronically Signed By: Tomás Renteria M.D. (units unknown) (unknown) (unknown) (no date) (unknown) (unknown) IMPRESSION: BENIGN ( units unknown) (unknown) (unknown) (no date) (unknown) (unknown) [facility] (uni ts unknown) (unknown) (unknown) (no date) (unknown) (unknown) LIMITED ULTRAS OUND OF LEFT BREAST: 01/27/2023 (units unknown) (unknown) (unknown) (no date) (unknown) (unknown) Loc: MAMMO (units unknown) (unknown) (unknown) (no date) (unknown) (unknown) Ordering Provi daryn: Elizabet Toribio MD (units unknown) (unknown) (unknown) (no date) (unknown) (unknown) Patient: Cheyenne Gonzales MR#: [id number] (units unknown) (unknown) (unknown) (no date) (unknown) (unknown) Procedure: US breast LT limited (units unknown) (unknown) (unknown) (no date) (unknown) (unknown) Real-time ultrasound of the left breast retroareolar was performed. Nickerson scale (units unknown) (unknown) (unknown) (no date) (unknown) (unknown) Return to [facility] mammogram screening schedule is recommended. (units unknown) (unknown) (unknown) (no date) (unknown) (unknown) Signed (units unknown) (unknown) (unknown) (no date) (unknown) (unknown) The dilated du cts in the left breast are benign. (units unknown) (unknown) (unknown) (no date) (unknown) (unknown) There are taylor gn dilated ducts in the left breast central to the nipple in the (units unknown) (unknown) (unknown) (no date) (unknown) (unknown) There is no sonographic evidence of malignancy. (units unknown) (unknown) (unknown) (no date) (unknown) (unknown) This exam was interpreted at Station ID: [id number]. (units unknown) (unknown) (unknown) (no date) (unknown) (unknown) Ultrasound BI- RADS: 2 Benign (units unknown) (unknown) (unknown) (no date) (unknown) (unknown) Ultrasound Report (u nits unknown) (unknown) (unknown) (no date) (unknown) (unknown) biopsy, (units unknown) (unknown) (unknown) (no date) (unknown) (unknown) images (units unknown) (unknown) (unknown) (no date) (unknown) (unknown) lc/:01/27/2023 10:57:30 (units unknown) (unknown) (unknown) (no date) (unknown) (unknown) letter sent: N ormal Exam (units unknown) (unknown) (unknown) (no date) (unknown) (unknown) mammogram - [facility]. (units unknown) (unknown) (unknown) (no date) (unknown) (unknown) of the real-ti me examination were reviewed. (units unknown) (unknown) (unknown) (no date) (unknown) (unknown) retroareolar region, corresponding to mammographic focal asymmetry. (units unknown) (unknown)
[2023-03-08] MEDS ORDERED: NAPROXEN 250 MG TABLET PO STA (11:32)
[2023-03-08] MEDS ORDERED: methocarbamoL 500 MG TABLET PO STA (11:32)
[2023-03-08] MEDS ORDERED: ACETAMINOPHEN 325 MG TABLET PO STA (11:32)
== END 2023-03-08 11:56 | disposition home or self-care (01) ==
LOC: ED 10:41
DX: H10.32 Unspecified acute conjunctivitis, left eye (principal); M54.41 Lumbago with sciatica, right side; I10 Essential (primary) hypertension; F17.200 Nicotine dependence, unspecified, uncomplicated
CPT/HCPCS: 99283; 99284; A9270

== ENCOUNTER 2023-08-15 10:53 | Outpatient (CLI) | payer OTHER ==
[2023-08-15 18:21] LABS: HCT - HEMATOCRIT 40.8 % (37.0-47.0); HGB - HEMOGLOBIN 12.8 g/dL (12.0-16.0); MEAN CORPUSCULAR HEMOGLOBIN 28.3 pg (27.0-31.0); MEAN CORPUSCULAR HGB CONC 31.4 g/dL (32.0-36.0); MEAN CORPUSCULAR VOLUME 90.3 fL (81.0-99.0); MEAN PLATELET VOLUME 10.3 fL (7.9-10.8); RED BLOOD COUNT 4.52 10^6/uL (4.20-5.40); WHITE BLOOD COUNT 6.8 x10^3/uL (4.8-10.8)
[2023-08-15 18:49] LABS: ALBUMIN 4.3 g/dL (3.2-5.5); ALBUMIN/GLOBULIN RATIO 1.5 (1.0-2.2); ALKALINE PHOSPHATASE 95 IU/L (42-121); ALT ALANINE AMINOTRANSFERASE 38 IU/L (10-60); AST ASPARTATE AMINOTRANSFERASE 25 IU/L (10-42); BILIRUBIN,TOTAL 0.5 mg/dL (0.2-1.0); BUN - BLOOD UREA NITROGEN 21 mg/dL (6-20); CALCIUM 9.4 mg/dL (8.5-10.3); CARBON DIOXIDE - CO2 29 mmol/L (21-32); CHLORIDE 104 mmol/L (101-111); CHOLESTEROL 189 mg/dL; GFR - MDRD 57 (>89); GLUCOSE 106 mg/dL (74-104); HDL CHOLESTEROL 47 mg/dL; LDL CHOLESTEROL,CALCULATED 115 mg/dL; LDL/HDL RATIO 2.4 (<4.4); POTASSIUM 4.1 mmol/L (3.5-4.5); SODIUM 139 mmol/L (135-145); TOTAL PROTEIN 7.2 g/dL (6.4-8.9); TRIGLYCERIDES 134 mg/dL (48-352); VLDL CHOLESTEROL 27 mg/dL
[2023-08-15 22:06] LABS: ESTIMATED AVERAGE GLUCOSE 137 mg/dL (70-100); HEMOGLOBIN A1c% 6.4 % (4.27-6.07)
== END 2023-08-15 10:54 | disposition home or self-care (01) ==
LOC: LAB.N 10:53
PROVIDERS: ATTEND Family Medicine
DX: I10 Essential (primary) hypertension (principal); R73.9 Hyperglycemia, unspecified; D52.9 Folate deficiency anemia, unspecified; E78.5 Hyperlipidemia, unspecified
CPT/HCPCS: 36415; 80053; 80061; 82746; 83036; 83721; 85027; 86803